=== PATIENT | male | born 1990 | race Caucasian/White ===

== ENCOUNTER → 2016-11-24 | Outpatient (CLI) | payer BC ==
[~2016-11-24] MED LIST: ASCO1CAP3 PO; ASPEC81 PO; CEFD300C2 PO; CIPR1TAB10 PO; CLC6 PO; DXY100 PO; INDO25CA14 PO
--- NOTE | 2016-11-24 15:10 | DIAGNOSTIC IMAGING REPORT ---
CT SCAN OF THE ABDOMEN AND PELVIS WITHOUT IV CONTRAST CLINICAL HISTORY: Upper abdominal pain. Hematuria. COMPARISON STUDY: No priors. TECHNIQUE: CT scan of the abdomen and pelvis is performed from the lung bases to the proximal femora. Images are reviewed in the axial, sagittal, and coronal planes. IV contrast was not administered for this examination as per the referring clinician. Automated dose control exposure was utilized. The examination is degraded by paucity of intraperitoneal fat. CT DOSE: 286.27 mGycm FINDINGS: Lung bases: The heart is normal in size and without pericardial effusion. The lung bases are clear. Liver: The unenhanced liver is normal in size, contour, and attenuation. There is no intrahepatic biliary ductal dilatation. Gallbladder: Contracted. Spleen: Normal in size and attenuation. Pancreas: The unenhanced pancreas is normal as visualized. Adrenal glands: Unremarkable. Kidneys: The unenhanced kidneys are normal in size and without hydronephrosis. There are no renal calculi identified. There is no evidence of contour deforming renal mass lesion. Abdominal vasculature: The abdominal aorta is normal in course and caliber. Bowel: The small bowel and colon are normal in course and caliber. There is moderate colonic fecal retention. The appendix is well-visualized and normal. Peritoneum: There is no intraperitoneal free air or abdominal ascites. Lymphadenopathy: None. Pelvic viscera: The bladder, prostate, and seminal vesicles are normal as imaged. Skeletal structures: No lytic or blastic lesions are seen. IMPRESSION: There are no acute infectious or inflammatory findings in the abdomen or pelvis. Electronically signed by: Oscar Howard M.D. 11/24/2016 3:09 PM Dictated Date/Time: 11/24/2016 3:04 PM
[2016-11-24 17:34] LABS: LYME DISEASE AB IGG NEG (NEG); LYME DISEASE AB IGM NEG (NEG)
== END | disposition home or self-care (01) ==
LOC: C.CTS 14:35
PROVIDERS: ATTEND Nurse Practitioner Family
DX: R31.9 Hematuria, unspecified (principal); R50.9 Fever, unspecified; M54.9 Dorsalgia, unspecified

== ENCOUNTER 2016-11-27 07:54 | Inpatient (IN) | payer BC ==
[~2016-11-27] VITALS: Ht 167.6 cm; Wt 58.1 kg
[2016-11-27] MEDS ORDERED: SODIUM CHLORIDE 0.9% 1000ML 1,000 ML IV STA ×2 (08:26→08:34)
[2016-11-27] MEDS ORDERED: GI COCKTAIL PO ONE (08:30)
[2016-11-27 08:46] LABS: HEMATOCRIT 38.8 % (42-52); MEAN CELL VOLUME 89.6 fL (80-100); MEAN CORPUSCULAR HEMOGLOBIN 32.1 pg (25-34); MEAN CORPUSCULAR HGB CONC 35.8 g/dl (32-36); MEAN PLATELET VOLUME 9.1 fL (7.4-10.4); PLATELET COUNT 121 K/uL (130-400); RED BLOOD COUNT 4.33 M/uL (4.7-6.1); WHITE BLOOD COUNT 5.83 K/uL (4.8-10.8)
[2016-11-27] MEDS ORDERED: LIDOCAINE HCL 2% VISC SOLN 20 ML UDC ONE (08:47)
[2016-11-27] MEDS ORDERED: ALUMINUM/MAGNESIUM SUSP 30 ML UDC ONE (08:47)
[2016-11-27] MEDS ORDERED: ASCO1CAP3 PO ×2 (08:48)
[2016-11-27] MEDS ORDERED: CIPR1TAB10 PO ×2 (08:48)
[2016-11-27 08:51] LABS: URINE APPEARANCE CLEAR (CLEAR); URINE BILIRUBIN NEG (NEG); URINE COLOR YELLOW; URINE EPITHELIAL CELL AUTO 0-5 /lpf (0-5); URINE NITRITE NEG (NEG); URINE SPECIFIC GRAVITY 1.012 (1.000-1.030); UROBILINOGEN NEG (NEG); ZZUR CULT IF INDIC CLEAN CATCH NO
[2016-11-27 08:54] LABS: MANUAL MICROSCOPIC REQUIRED? NO; REVIEW REQ? NO
[2016-11-27 09:03] LABS: BUN/CREATININE RATIO 22.1 (10-20); CREATININE 0.92 mg/dl (0.60-1.40); MAGNESIUM 2.4 mg/dl (1.8-2.4); POTASSIUM 3.9 mmol/L (3.5-5.1)
[2016-11-27 09:08] LABS: BASO % 1.2 %; BASO ABS # 0.07 K/uL (0-0.2); COMPLETE YES; EOS % 0.5 %; LYMPH % 48.5 %; LYMPH ABS # 2.83 K/uL (1.2-3.4); MONO % 14.9 %; NEUT % 34.9 %
[2016-11-27 09:21] LABS: CALCIUM 9.2 mg/dl (8.5-10.1)
--- NOTE | 2016-11-27 09:31 | DIAGNOSTIC IMAGING REPORT ---
CHEST ONE VIEW PORTABLE HISTORY: Atypical chest pain COMPARISON: None. FINDINGS: The lungs are clear. Cardiac silhouette is normal in size. No pleural effusions. No pneumothorax. IMPRESSION: No acute process. Electronically signed by: Stef Servin M.D. 11/27/2016 9:29 AM Dictated Date/Time: 11/27/2016 9:28 AM
--- NOTE | 2016-11-27 09:37 | EMERGENCY ROOM VISIT NOTE ---
History First contact with patient: 08:05 Chief Complaint: CARDIAC ASSESSMENT Stated Complaint: ARM PAIN/TINGLING/DIZZINESS,VERTIGO/CHEST PAIN Nursing Triage Summary: Pt c/o heart burn after taking cipro last night, c/o upper bilateral back pain and upper bilateral chest pain that began 2 hours ago. Pt associated pain and numbness feeling in bilateral arms Cipro for kidney infection. History of Present Illness The patient is a 26 year old male who presents to the Emergency Room with complaints of nausea and chest pain. The patient began having UTI symptoms on Sunday including burning of urination, fever, chills and increased urinary frequency and was seen by Arianna Foster on Sunday and diagnosed with pyelonephritis. He was started on a course of Ciprofloxacin. He reports that his symptoms were improving until last night he had some reflux after ingesting the Cipro at 11:30pm. The reflux was painful according to the patient and felt some discomfort along his chest as well as into his shoulder. Overnight the patient reports nausea described as feeling like he was rocking in a boat. He woke up this morning with chest discomfort he said feels like is going through his chest and also covering his back. He denies any fevers or chills over the last 24 hours. He also complains of numbness and tingling through his arms to his fingers. He denies any dysuria, flank pain, hematuria, abdominal pain, cloudiness of urine, or polyuria. Patient also denies any shortness of breath or palpitations. Review of Systems See HPI for pertinent positives and negatives. A total of ten systems were reviewed and were otherwise negative. Family History Father: Pulmonary Embolism at age 60 Social History Smoking Status: Never Smoker Current/Historical Medications Scheduled Ascorbic Acid (Vitamin C), 500 MG PO DAILY Ciprofloxacin Hcl (Cipro), 500 MG PO BID Allergies Coded Allergies: No Known Allergies (Unverified , 11/27/16) Physical Exam Vital Signs Date Time Temp Pulse Resp B/P Pulse Ox O2 Delivery O2 Flow Rate FiO2 11/27/16 10:33 92 21 99 11/27/16 10:28 90 19 98 11/27/16 10:23 89 27 98 11/27/16 10:18 87 26 98 11/27/16 10:13 86 21 98 11/27/16 09:43 85 20 100 11/27/16 09:38 126/71 11/27/16 09:29 97 22 11/27/16 09:24 97 29 11/27/16 09:19 80 24 11/27/16 09:14 82 18 11/27/16 09:09 85 31 11/27/16 09:04 75 16 11/27/16 08:59 98 15 11/27/16 08:55 107/70 11/27/16 08:55 71 16 107/70 100 Room Air 11/27/16 08:54 79 17 11/27/16 08:49 69 24 11/27/16 08:44 71 25 11/27/16 08:39 74 22 11/27/16 08:34 78 27 11/27/16 08:29 81 18 11/27/16 08:27 75 11/27/16 08:12 107/58 11/27/16 08:10 98 Room Air 11/27/16 08:02 36.5 97 18 108/71 98 Room Air Physical Exam GENERAL: Awake, alert, in moderate distress HENT: Normocephalic, atraumatic. Oropharynx unremarkable. Dry mucous membranes EYES: Normal conjunctiva. Sclera non-icteric. NECK: Supple. Trachea midline RESPIRATORY: Clear to auscultation. Good inspiratory effort CARDIAC: Regular rate, normal rhythm. Extremities warm and well perfused. Pulses equal. ABDOMEN: Soft, non-distended. No tenderness to palpation. No rebound or guarding. No masses. RECTAL: Deferred. MUSCULOSKELETAL: Chest examination reveals no tenderness. The back is symmetrical on inspection without obvious abnormality. There is no CVA tenderness to palpation. No joint edema. Pectus excavatum. LOWER EXTREMITIES: Calves are equal size bilaterally and non-tender. No edema. No discoloration. NEURO: Normal sensorium. No sensory or motor deficits noted. SKIN: No rash or jaundice noted. Medical Decision & Procedures Laboratory Results 11/27/16 08:30 Red Blood Count 4.33, Mean Corpuscular Volume 89.6, Mean Corpuscular Hemoglobin 32.1, Mean Corpuscular Hemoglobin Concent 35.8, Mean Platelet Volume 9.1, Neutrophils (%) (Auto) 34.9, Lymphocytes (%) (Auto) 48.5, Monocytes (%) (Auto) 14.9, Eosinophils (%) (Auto) 0.5, Basophils (%) (Auto) 1.2, Neutrophils # (Auto ) 2.03, Lymphocytes # (Auto) 2.83, Monocytes # (Auto) 0.87, Eosinophils # (Auto ) 0.03, Basophils # (Auto) 0.07 11/27/16 08:30 Test 11/27/16 08:13 11/27/16 08:30 Urine Color YELLOW Urine Appearance CLEAR (CLEAR) Urine pH 7.0 (4.5-7.5) Urine Specific [place] 1.012 (1.000-1.030) Urine Protein NEG (NEG) Urine Glucose (UA) NEG (NEG) Urine Ketones NEG (NEG) Urine Occult Blood 1+ (NEG) Urine Nitrite NEG (NEG) Urine Bilirubin NEG (NEG) Urine Urobilinogen NEG (NEG) Urine Leukocyte Esterase NEG (NEG) Urine WBC (Auto) 0 /hpf (0-5) Urine RBC (Auto) 5-10 /hpf (0-4) Urine Hyaline Casts (Auto) 0 /lpf (0-5) Urine Epithelial Cells (Auto) 0-5 /lpf (0-5) Urine Bacteria (Auto) NEG (NEG) White Blood Count 5.83 K/uL (4.8-10.8) Red Blood Count 4.33 M/uL (4.7-6.1) Hemoglobin 13.9 g/dL (14.0-18.0) Hematocrit 38.8 % (42-52) Mean Corpuscular Volume 89.6 fL (80-100) Mean Corpuscular Hemoglobin 32.1 pg (25-34) Mean Corpuscular Hemoglobin Concent 35.8 g/dl (32-36) Platelet Count 121 K/uL (130-400) Mean Platelet Volume 9.1 fL (7.4-10.4) Neutrophils (%) (Auto) 34.9 % Lymphocytes (%) (Auto) 48.5 % Monocytes (%) (Auto) 14.9 % Eosinophils (%) (Auto) 0.5 % Basophils (%) (Auto) 1.2 % Neutrophils # (Auto) 2.03 K/uL (1.4-6.5) Lymphocytes # (Auto) 2.83 K/uL (1.2-3.4) Monocytes # (Auto) 0.87 K/uL (0.11-0.59) Eosinophils # (Auto) 0.03 K/uL (0-0.5) Basophils # (Auto) 0.07 K/uL (0-0.2) RDW Standard Deviation 46.4 fL (36.4-46.3) RDW Coefficient of Variation 14.2 % (11.5-14.5) Immature Granulocyte % (Auto) 0.0 % Immature Granulocyte # (Auto) 0.00 K/uL (0.00-0.02) Erythrocyte Sedimentation Rate 11 mm/hr (0-14) D-Dimer 1700 ug/L FEU (0-500) Anion Gap 7.0 mmol/L (3-11) Est Creatinine Clear Calc Drug Dose 98.8 ml/min Estimated GFR () 133.5 Estimated GFR (Non- 115.2 BUN/Creatinine Ratio 22.1 (10-20) Calcium Level 9.2 mg/dl (8.5-10.1) Magnesium Level 2.4 mg/dl (1.8-2.4) Total Bilirubin 0.7 mg/dl (0.2-1) Direct Bilirubin 0.1 mg/dl (0-0.2) Aspartate Amino Transf (AST/SGOT) 32 U/L (15-37) Alanine Aminotransferase (ALT/SGPT) 38 U/L (12-78) Alkaline Phosphatase 44 U/L (45-117) Troponin I 0.698 ng/ml (0-0.045) C-Reactive Protein 1.91 mg/dl (0-0.29) Total Protein 7.1 gm/dl (6.4-8.2) Albumin 3.7 gm/dl (3.4-5.0) Lipase 192 U/L (73-393) Medications Administered Medications (Trade) Dose Ordered Sig/Angelica Route Start Time Stop Time Status Last Admin Dose Admin Sodium Chloride (Nss 1000ml) 1,000 ml @ 999 mls/hr Q1H1M STAT IV 11/27/16 08:26 11/27/16 09:26 DC 11/27/16 08:50 999 MLS/HR Miscellaneous Medication 24 ml 24 ml ONE ONCE PO 11/27/16 08:30 11/27/16 08:31 DC 11/27/16 08:30 24 ML Sodium Chloride (Nss 1000ml) 1,000 ml @ 999 mls/hr Q1H1M STAT IV 11/27/16 08:34 11/27/16 09:34 DC 11/27/16 08:52 999 MLS/HR Al Hydroxide/Mg Hydroxide (Maalox Susp) 30 ml STK-MED ONCE .ROUTE 11/27/16 08:47 11/27/16 08:48 DC 11/27/16 08:50 30 ML Lidocaine HCl (Viscous Lidocaine 2% Soln) 20 ml STK-MED ONCE .ROUTE 11/27/16 08:47 11/27/16 08:48 DC 11/27/16 08:50 20 ML Medical Decision Patient is a 26 year old male that presents with chills, nausea, and chest pain since last night - Differential diagnosis: GERD, Pyelonephritis, Anxiety, Cardiac Ischemia, Aortic Dissection, Pulmonary Embolism, Pneumonia, Pneumothorax, MSK, Infections , GI, Myocarditis/Pericarditis - EKG: Normal Sinus Rhythm, No ST changes, Normal Rate - Labs Ordered: CBC, BMP, Lipase, LFTs, Troponin, D-dimer - Imaging Ordered: Chest X-Ray - 1L IV NS - GI Cocktail - Troponin found to be elevated at 0.698, D-Dimer elevated at 1700 - Based on symptoms, concerning for possible pericarditis, myocarditis, or pulmonary embolism - Contacted Dr. Ruelas who agreed to see the patient - After discussing case with Dr. Ruelas ordered CTA for PE Impression Primary Impression: Chest pain Additional Impression: Elevated troponin Departure Information Dispostion Admitted as an inpatient Condition FAIR Referrals Arianna Gonzales, C.R.N.P. (PCP) Patient Instructions [facility] Problem Qualifiers Primary Impression: Chest pain Chest pain type: unspecified Qualified Codes: R07.9 - Chest pain, unspecified
[2016-11-27] MEDS ORDERED: OPTIRAY 320 IV PRN (09:45)
--- NOTE | 2016-11-27 10:17 | DIAGNOSTIC IMAGING REPORT ---
CHEST CTA for PULMONARY ARTERIES CT DOSE: 192.10 mGy.cm HISTORY: Atypical chest pain. TECHNIQUE: Multiaxial CT images of the chest were performed following the intravenous administration of contrast to evaluate the pulmonary arteries. Maximal intensity projection images were also obtained. COMPARISON STUDY: None. FINDINGS: There is a normal caliber thoracic aorta with no evidence for dissection. There is no evidence for pulmonary embolus. No pleural effusions. No pneumothorax. The liver and spleen are unremarkable. No mediastinal or hilar lymphadenopathy. The central airways are patent. The lungs are clear. The main pulmonary artery is dilated up to 3.4 cm. IMPRESSION: No evidence for pulmonary embolus. Dilated main pulmonary artery. This is concerning for pulmonary arterial hypertension. Follow-up nonemergent echocardiogram is recommended for further evaluation. Electronically signed by: Stef Servin M.D. 11/27/2016 10:16 AM Dictated Date/Time: 11/27/2016 10:07 AM
[2016-11-27 10:55] LABS: LYME DISEASE AB IGG NEG (NEG); LYME DISEASE AB IGM NEG (NEG)
[2016-11-27] MEDS ORDERED: ALUMINUM/MAGNESIUM/SIMETH (MAALOX MAX) 30 ML UDC PO PRN (11:00)
[2016-11-27] MEDS ORDERED: ONDANSETRON INJ 2 MG/ML 2 ML VIAL IV PRN (11:00)
[2016-11-27] MEDS ORDERED: ACETAMINOPHEN 325 MG TAB PO PRN (11:00)
[2016-11-27 11:20] VITALS: O2SAT 99; Ht 167.6 cm; Wt 58.1 kg
--- NOTE | 2016-11-27 11:45 | History and Physical ---
History & Physical Date & Time of Service: November 27, 2016 at 11:10 Chief Complaint: Arm Pain/Tingling/Dizziness,Vertigo/Chest Pain Primary Care Physician: Arianna Gonzales C.R.N.P. History of Present Illness Source: patient, partner Pt is a 26 yo male with no past medical hx who presents to the ER with complaints of nausea/chest tightness and upper back pain that started this AM. Pt reports having pain on urination and bilateral flank pain and fevers, joint pains last Sunday in which he states he went to see Arianna Foster after symptoms persisted for 2 days. He was given cipro at that time in which he states his symptoms initially improved until yesterday in which he states he had some reflux after taking his cipro. He states this morning, he woke up chest pressure and upper back pain as well. He felt cloudy, and dizzy and general malaise at which he decided to come to the ER. In addition pt does report prior to his intial sx last week, he did notice several tick bites on his abdomen and left leg. Currently he denies any fevers, chill, nausea, vomiting, diarrhea, flank pain, abdominal pain or urinary sx. Social History Smoking Status: Never Smoker Smokeless Tobacco Use: No Alcohol Use: none Drug Use: none Marital Status: in relationship Allergies Coded Allergies: No Known Allergies (Unverified , 11/27/16) Home Medications Scheduled Ascorbic Acid (Vitamin C), 500 MG PO DAILY Ciprofloxacin Hcl (Cipro), 500 MG PO BID Review of Systems Constitutional: + chills, + fatigue, + fever, + weakness, No sweats Eyes: No discharge, No eye pain, No redness, No worsening of vision ENT: No hearing loss, No nasal symptoms, No sore throat, No tinnitus, No trouble swallowing, No unusual epistaxis Respiratory: No cough, No dyspnea on exertion, No shortness of breath, No sputum, No wheezing Cardiovascular: + chest pain, No PND, No claudication, No edema, No orthopnea Abdomen: No constipation, No diarrhea, No nausea, No pain, No vomiting Musculoskeletal: + joint pain, + muscle pain, No calf pain, No swelling Genitourinary - Male: No dysuria, No hematuria, No urinary frequency, No urinary urgency Neurologic: No numbness/tingling, No paralysis, No vertigo, No weakness Psychiatric: No anhedonism, No anxiety, No depression symptoms, No insomnia Endocrine: No excessive thirst, No excessive urination, No fatigue Integumentary: No color change, No itch, No new/changing skin lesions, No rash Physical Exam Vital Signs Date Time Temp Pulse Resp B/P Pulse Ox O2 Delivery O2 Flow Rate FiO2 11/27/16 10:33 92 21 99 11/27/16 10:28 90 19 98 11/27/16 10:23 89 27 98 11/27/16 10:18 87 26 98 11/27/16 10:13 86 21 98 11/27/16 09:43 85 20 100 11/27/16 09:38 126/71 11/27/16 09:29 97 22 11/27/16 09:24 97 29 11/27/16 09:19 80 24 11/27/16 09:14 82 18 11/27/16 09:09 85 31 11/27/16 09:04 75 16 11/27/16 08:59 98 15 11/27/16 08:55 107/70 11/27/16 08:55 71 16 107/70 100 Room Air 11/27/16 08:54 79 17 11/27/16 08:49 69 24 11/27/16 08:44 71 25 11/27/16 08:39 74 22 11/27/16 08:34 78 27 11/27/16 08:29 81 18 11/27/16 08:27 75 11/27/16 08:12 107/58 11/27/16 08:10 98 Room Air 11/27/16 08:02 36.5 97 18 108/71 98 Room Air General Appearance: WD/WN, no apparent distress Head: normocephalic, atraumatic Eyes: normal inspection, PERRL, EOMI, sclerae normal ENT: normal ENT inspection, hearing grossly normal, TMs normal, pharynx normal Neck: supple, no adenopathy, thyroid normal, no JVD Respiratory/Chest: chest non-tender, lungs clear, normal breath sounds, no respiratory distress Cardiovascular: regular rate, rhythm, no edema, no gallop, no JVD Abdomen/GI: normal bowel sounds, non tender, soft, no organomegaly Back: normal inspection, no CVA tenderness, no muscle spasm, normal range of motion Neurologic/Psych: no motor/sensory deficits, alert, normal mood/affect, normal reflexes Diagnostics Laboratory Results Results Past 24 Hours Test 11/27/16 08:13 11/27/16 08:30 11/27/16 11:01 Range/Units Urine Color YELLOW Urine Appearance CLEAR CLEAR Urine pH 7.0 4.5-7.5 Urine Specific [place] 1.012 1.000-1.030 Urine Protein NEG NEG Urine Glucose (UA) NEG NEG Urine Ketones NEG NEG Urine Occult Blood 1+ NEG Urine Nitrite NEG NEG Urine Bilirubin NEG NEG Urine Urobilinogen NEG NEG Urine Leukocyte Esterase NEG NEG Urine WBC (Auto) 0 0-5 /hpf Urine RBC (Auto) 5-10 0-4 /hpf Urine Hyaline Casts (Auto) 0 0-5 /lpf Urine Epithelial Cells (Auto) 0-5 0-5 /lpf Urine Bacteria (Auto) NEG NEG White Blood Count 5.83 4.8-10.8 K/uL Red Blood Count 4.33 4.7-6.1 M/uL Hemoglobin 13.9 14.0-18.0 g/dL Hematocrit 38.8 42-52 % Mean Corpuscular Volume 89.6 80-100 fL Mean Corpuscular Hemoglobin 32.1 25-34 pg Mean Corpuscular Hemoglobin Concent 35.8 32-36 g/dl Platelet Count 121 130-400 K/uL Mean Platelet Volume 9.1 7.4-10.4 fL Neutrophils (%) (Auto) 34.9 % Lymphocytes (%) (Auto) 48.5 % Monocytes (%) (Auto) 14.9 % Eosinophils (%) (Auto) 0.5 % Basophils (%) (Auto) 1.2 % Neutrophils # (Auto) 2.03 1.4-6.5 K/uL Lymphocytes # (Auto) 2.83 1.2-3.4 K/uL Monocytes # (Auto) 0.87 0.11-0.59 K/uL Eosinophils # (Auto) 0.03 0-0.5 K/uL Basophils # (Auto) 0.07 0-0.2 K/uL RDW Standard Deviation 46.4 36.4-46.3 fL RDW Coefficient of Variation 14.2 11.5-14.5 % Immature Granulocyte % (Auto) 0.0 % Immature Granulocyte # (Auto) 0.00 0.00-0.02 K/uL Erythrocyte Sedimentation Rate 11 0-14 mm/hr D-Dimer 1700 0-500 ug/L FEU Sodium Level 138 136-145 mmol/L Potassium Level 3.9 3.5-5.1 mmol/L Chloride Level 103 98-107 mmol/L Carbon Dioxide Level 28 21-32 mmol/L Anion Gap 7.0 3-11 mmol/L Blood Urea Nitrogen 20 7-18 mg/dl Creatinine 0.92 0.60-1.40 mg/dl Est Creatinine Clear Calc Drug Dose 98.8 ml/min Estimated GFR () 133.5 Estimated GFR (Non- 115.2 BUN/Creatinine Ratio 22.1 10-20 Random Glucose 96 70-99 mg/dl Calcium Level 9.2 8.5-10.1 mg/dl Magnesium Level 2.4 1.8-2.4 mg/dl Total Bilirubin 0.7 0.2-1 mg/dl Direct Bilirubin 0.1 0-0.2 mg/dl Aspartate Amino Transf (AST/SGOT) 32 15-37 U/L Alanine Aminotransferase (ALT/SGPT) 38 12-78 U/L Alkaline Phosphatase 44 45-117 U/L Troponin I 0.698 0-0.045 ng/ml C-Reactive Protein 1.91 0-0.29 mg/dl Total Protein 7.1 6.4-8.2 gm/dl Albumin 3.7 3.4-5.0 gm/dl Lipase 192 73-393 U/L Lyme Disease IgG Antibody NEG NEG Lyme Disease IgM Antibody NEG NEG Microbiology Results 11/27/16 Blood Culture, South Batch Pending 11/27/16 Blood Culture, [place] Batch Pending Impression Assessment and Plan Pt is a 26 yo male with no med hx who initially presented to PCP last sunday with urinary sx, flank pain and placed on cipro and improved until this AM pt reported dizziness, chest pressure with elev trop Chest pressure with elev trop/NSTEMI - Pt reports improvement of chest tightness in ER. Pt does report father had PE and is on coumadin. Will cont to trend trops. ?if trops due to recents infection. ? pericarditis from recent infection as well. Will obtain EKG and ECHO. Will start on rocephin and doxycycline in addition to IVF. Will obtain outpatient records regarding urine cx, and lyme titers. Will also order anaplasmosis screening as well. Elev Bun/Cr likely secondary to dehydration and prerenal causes, will cont IVF and trend BMP Thrombocytopenia likely reactive to infection, if worsening may need to DC lovenox DVT ppx with lovenox Pt is FULL CODE VTE Prophylaxis VTE Risk Assessment Done? Y/N: Yes Risk Level: Moderate
[2016-11-27 12:30] VITALS: BP 106/69; PULSE 77; TEMP 36.7; O2SAT 100
[2016-11-27 12:40] LABS: INR 1.1 (0.9-1.1); PROTHROMBIN TIME (PATIENT) 11.7 SECONDS (9.0-12.0)
--- NOTE | 2016-11-27 13:20 | ECHOCARDIOGRAM REPORT ---
*NOTICE TO RECEIVING REPUBLICAN AGENCY This information is strictly Confidential and protected under [place] law. [place] law prohibits you from making any further disclosure of this information unless further disclosure is expressly permitted by the written consent of the person to whom it pertains or is authorized by law. A general authorization for the release of medical or other information is not sufficient for this purpose. Hospital accepts no responsibility if the information is made available to any other person, INCLUDING THE PATIENT. Interpretation Summary * Name: JACKELYN ANDUJAR Study Date: 11/27/2016 12:17 PM BP: 106/69 mmHg * Patient Location: .2T\S\S238\S\2 HR: 75 * : 1990 (M/d/yyyy) Gender: Male Height: 66 in * Age: 26 yrs Ethnicity: [place] Weight: 125 lb * Ordering Physician: Audi Ruelas * Referring Physician: Self, Referred * Performed By: Gabriella Gonzales RCS * * Reason For Study: CHEST PAIN / ELEVATED TROPONIN * BSA: 1.6 m2 * -- Conclusions -- * 1. Normal left ventricular size and systolic function. EF 55-60%. No definite regional wall motion abnormalities. No left ventricular hypertrophy. No significant diastolic dysfunction. * 2. No significant valvular abnormalities. * 3. Normal estimated right ventricular systolic pressure. * 4. No prior study available for comparison. Procedure Details * A complete two-dimensional transthoracic echocardiogram was performed (2D, M-mode, Doppler and color flow Doppler). Left Ventricle * Normal left ventricular size and systolic function. EF 55-60%. No definite regional wall motion abnormalities. No left ventricular hypertrophy. No significant diastolic dysfunction. Right Ventricle * The right ventricle is normal in size and function. * The right ventricular systolic function is normal as assessed by tricuspid annular plane systolic excursion (TAPSE) (normal >1.5 cm). Atria * The left atrial size is normal. * Right atrial size is normal. * There is no evidence of atrial septal defect, but resolution does not allow assessment for a patent foramen ovale. Mitral Valve * The mitral valve leaflets appear normal. There is no evidence of stenosis, fluttering, or prolapse. * There is trace mitral regurgitation. Tricuspid Valve * The tricuspid valve is not well visualized, but is grossly normal. * There is no tricuspid stenosis. * There is trace tricuspid regurgitation. Aortic Valve * The aortic valve is normal in structure and function. * The aortic valve is trileaflet. * No hemodynamically significant valvular aortic stenosis. * No aortic regurgitation is present. Pulmonic Valve * The pulmonary valve is inadequately visualized, but the Doppler data is adequate for interpretation. * There is no pulmonic valvular stenosis. * There is no significant pulmonary regurgitation. Great Vessels * The aortic root is normal size. * Normal pulmonary venous flow pattern. Pericardium/Pleural * There is no pericardial effusion. Great Vessels * Normal inferior vena cava size and collapsability with sniff indicates a normal right atrial pressure of 3 mmHg MMode 2D Measurements and Calculations IVSd 0.98 cm IVSs 1.4 cm LVIDd 5.0 cm LVIDs 3.3 cm LVPWd 0.97 cm LVPWs 1.4 cm IVS/LVPW 1.0 FS 32.6 % EDV(Teich) 115.9 ml ESV(Teich) 45.4 ml EF(Teich) 60.8 % EDV(cubed) 121.8 ml ESV(cubed) 37.2 ml EF(cubed) 69.4 % % IVS thick 40.0 % % LVPW thick 39.1 % LV mass(C)d 174.1 grams LV mass(C)dI 106.3 grams/m\S\2 LV mass(C)s 155.5 grams LV mass(C)sI 94.9 grams/m\S\2 SV(Teich) 70.5 ml SI(Teich) 43.0 ml/m\S\2 SV(cubed) 84.6 ml SI(cubed) 51.6 ml/m\S\2 Ao root diam 2.8 cm Ao root area 6.2 cm\S\2 LA dimension 2.9 cm LA/Ao 1.0 LVOT diam 1.9 cm LVOT area 3.0 cm\S\2 LVAd ap4 36.8 cm\S\2 LVLd ap4 9.1 cm EDV(MOD-sp4) 127.3 ml EDV(sp4-el) 126.4 ml LVAs ap4 20.8 cm\S\2 LVLs ap4 7.2 cm ESV(MOD-sp4) 51.7 ml ESV(sp4-el) 50.8 ml EF(MOD-sp4) 59.4 % EF(sp4-el) 59.8 % SV(MOD-sp4) 75.6 ml SI(MOD-sp4) 46.1 ml/m\S\2 SV(sp4-el) 75.5 ml SI(sp4-el) 46.1 ml/m\S\2 Doppler Measurements and Calculations MV E max asher 73.9 cm/sec MV A max asher 36.7 cm/sec MV E/A 2.0 MV P1/2t max asher 95.1 cm/sec MV P1/2t 69.9 msec MVA(P1/2t) 3.1 cm\S\2 MV dec slope 398.8 cm/sec\S\2 MV dec time 0.24 sec Ao V2 max 101.1 cm/sec Ao max PG 4.1 mmHg Ao max PG (full) 1.4 mmHg RAIMUNDO(V,A) 2.4 cm\S\2 RAIMUNDO(V,D) 2.4 cm\S\2 LV V1 max PG 2.7 mmHg LV V1 max 81.4 cm/sec TV E max asher 73.9 cm/sec PA V2 max 85.9 cm/sec PA max PG 3.0 mmHg TR max asher 194.2 cm/sec RVSP(TR) 18.1 mmHg RAP systole 3.0 mmHg
--- NOTE | 2016-11-27 13:25 | EMERGENCY ROOM VISIT NOTE ---
ED Visit Note First contact with patient: 08:05 Resident Physician Supervision Note: Dr. Rajendra Trevino was resident physician during care of patient. I separately evaluated patient and did history and exam. I discussed the case with the resident and generally agree with the findings and plan. 26 yr old male with substernal chest pain this morning which he attributed to taking cipro last night. Being treated for UTI/pyelonephritis with normal CT abdo/pelv 2 days ago. Denies shortness of breath. Admits feeling weak/tired. Not septic appearing nor is there evidence of meningitis. Moderately ill appearing. EKG without acute stemi though there are some up going ST segments diffusely concerning for pericarditis. Trop is elevated. He is not a STEMI. I do not feel that this patient has NSTEMI and I feel this is unlikely ACS. However, he will clearly need to come in for further evaluation/treatment. Dimer done given family history which is elevated. May just be pericarditis/ myocarditis related, however with chest pain, elevated dimer and symptoms will go ahead with CT PE study which was fortunately negative. Will hold off on any heparinization in this patient. Diagnosis: Substernal Chest Pain Elevated Troponin Documented By: Francisco Butler MD
[2016-11-27] MEDS: SODIUM CHLORIDE 0.9% 1000ML 1,000 ML IV SCH ×2 (13:42→21:45)
[2016-11-27] MEDS: DOXYCYCLINE IV 100 MG in DEXTROSE 5% 100ML 100 ML IV SCH ×2 (13:43→23:58)
[2016-11-27 15:27] VITALS: BP 100/63; PULSE 90; TEMP 36.8; O2SAT 99
[2016-11-27] MEDS ORDERED: LORAZEPAM 0.5 MG TAB PO STA (16:55)
[2016-11-27] MEDS ORDERED: NURSING VERBAL MED ORDER ONE (17:00)
[2016-11-27] MEDS: CEFTRIAXONE SOD INJ 2,000 MG in DEXTROSE 5% 50ML 50 ML IV SCH (17:19)
[2016-11-27 19:14] VITALS: BP 101/63; PULSE 74; TEMP 36.6; O2SAT 99
[2016-11-27] MEDS: ENOXAPARIN 40 MG/0.4 ML SYR SQ SCH (21:00)
[2016-11-27] MEDS ORDERED: ASPIRIN 81 MG ECTAB PO ONE (23:35)
[2016-11-27] MEDS ORDERED: COLCHICINE 0.6 MG TAB PO ONE (23:35)
[2016-11-28] VITALS (7 sets, daily range): BP systolic 100–115; BP diastolic 64–71; PULSE 60–82; TEMP 36.6–37; O2SAT 97–99
--- NOTE | 2016-11-28 00:38 | Progress Note ---
Progress Note Date of Service November 28, 2016. Progress Note elevated troponin of 7. patient was started on ASA 81 mg bid and colchicine 0.6mg bid for pericarditis treatment. EKG reordered and consult [facility].
[2016-11-28 07:28] LABS: HEMATOCRIT 39.6 % (42-52); MEAN CELL VOLUME 91.2 fL (80-100); MEAN CORPUSCULAR HEMOGLOBIN 31.6 pg (25-34); MEAN CORPUSCULAR HGB CONC 34.6 g/dl (32-36); MEAN PLATELET VOLUME 8.7 fL (7.4-10.4); PLATELET COUNT 148 K/uL (130-400); RED BLOOD COUNT 4.34 M/uL (4.7-6.1); WHITE BLOOD COUNT 6.09 K/uL (4.8-10.8)
[2016-11-28 08:18] LABS: BUN/CREATININE RATIO 12.8 (10-20); CALCIUM 8.8 mg/dl (8.5-10.1); CREATININE 0.87 mg/dl (0.60-1.40); POTASSIUM 3.9 mmol/L (3.5-5.1)
[2016-11-28] MEDS: ASPIRIN 81 MG ECTAB PO SCH ×2 (08:25→20:32)
[2016-11-28] MEDS: COLCHICINE 0.6 MG TAB PO SCH ×2 (08:25→20:32)
[2016-11-28] MEDS ORDERED: LORAZEPAM 2 MG/ML 1 ML VIAL IV PRN (08:45)
[2016-11-28] MEDS ORDERED: LORAZEPAM 0.5 MG TAB PO PRN ×2 (08:51→09:15)
[2016-11-28] MEDS ORDERED: INDOMETHACIN 25 MG CAP PO ONE (08:55)
[2016-11-28 09:14] LABS: COMPLETE YES; LYMPH ABS # 2.81 K/uL (1.2-3.4); LYMPHOCYTE % 46.1 %; NEUTROPHILS % 17.4 %; VARIANT LYM ABS # 1.96 K/uL; VARIANT LYMPHOCYTE % 32.2 %
--- NOTE | 2016-11-28 10:09 | CARDIOLOGY CONSULTATION REPORT ---
DATE OF CONSULTATION: 11/28/2016 DATE OF CONSULTATION: 11/28/2016. REASON FOR CONSULTATION: 1. Chest pain. 2. Elevated troponin I level. HISTORY OF PRESENT ILLNESS: Porter is a very pleasant 26-year-old white male with no prior cardiac history, and no chronic medical conditions. He has been in his usual state of health until last Sunday when he developed mid back pain, nausea, fever, and malaise. He had also complained of some urinary symptoms. He was started empirically on Cipro for possible ascending UTI, and he had taken about 5 doses before he presented to the Emergency Room. On the morning of admission the patient had awakened, and noted some upper chest pressure which radiated to his upper back, but did not have any nausea, vomiting, diaphoresis, or dyspnea. Because of the chest discomfort, the patient came into the Emergency Room for further evaluation. The patient had had several tick bites leading up to this, but thus far his Lyme titers are negative. The patient offers no other complaints. He is a very physically active person -- generally riding bike, fishing, hiking, and doing a lot of aerobic activities. He has never experienced any limiting cardiopulmonary symptoms at any time with those activities. MEDICATIONS: 1. Aspirin 81 mg b.i.d. 2. Colchicine 0.6 mg b.i.d. 3. Lorazepam 0.5 mg p.o. q. 6 hour p.r.n. for anxiety. 4. Lovenox 40 mg subQ injection every day at bedtime. 5. Ceftriaxone 2 grams IV daily. 6. Doxycycline 100 mg IV q. 12 hours. 7. Normal saline at 100 mL per hour. 8. Tylenol p.r.n. 9. Maalox Max p.r.n. 10. Zofran p.r.n. ALLERGIES: No known drug allergies. PAST MEDICAL HISTORY: 1. No prior hospitalizations. 2. No prior cardiac history. 3. Nasolacrimal duct surgery. 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 He has his masters degree from [employer]. He does not use tobacco or tobacco products. He is originally from [place], [place]. Exercises on a daily basis. FAMILY HISTORY: Significant for a pulmonary embolism in his father at the age of 60. PHYSICAL EXAMINATION: VITAL SIGNS: Temperature is 36.7 degrees Celsius, pulse is 60 and regular. Respiratory rate is 17 and unlabored. Blood pressure is 106/69. SpO2 is 97% on room air. GENERAL: The patient in no acute distress. HEAD, EYES, EARS, NOSE, AND THROAT: Head is atraumatic, normocephalic. EOMs intact. Sclerae are anicteric. Face is symmetric. No perioral cyanosis. NECK: Is without thyromegaly, adenopathy, or JVD. Jugular venous pressure is at the level of the clavicle sitting upright. Kussmaul sign is absent. CHEST AND LUNGS: Clear to auscultation throughout all lung lewis. No wheezes, rales, or rhonchi. CARDIOVASCULAR: S1 and S2 are regular without murmur, gallop, or rub. PMI is nonpalpable. No lifts, heaves, or thrills. No abdominal aortic or renal bruits. ABDOMINAL EXAMINATION: Bowel sounds are present. No masses, organomegaly or tenderness. EXTREMITIES: Are without clubbing, cyanosis, or edema. Intact radial and posterior tibial pulses bilaterally. NEUROLOGIC EXAMINATION: The patient is awake, alert and oriented. Pleasant and cooperative. Answers questions appropriately. Speech is clear. Normal movement in bilateral upper and lower extremities. Gait pattern is not assessed. LABORATORIES: White blood cell count is 6.09, hemoglobin is 13.7 g/dL, hematocrit 39.6%, platelet count is 148,000. Sedimentation rate is 11 mm per hour. D-Dimer elevated at [address] scan of the chest for pulmonary embolism is negative. Sodium is 143 mmol/L, potassium 3.9 mmol/L, BUN is 11 mg/dL, creatinine is 0.87 mg/dL, random glucose 93 mg/dL. Serum magnesium level is normal at 2.4 mg/dL. Troponin I levels are 5.510, 7.680, 1.310, and 0.698 ng/mL. CK and CK-MB levels were not drawn. C. reactive protein is elevated at 1.91 mg/dL. Urine shows 1+ occult blood, no white blood cells. Serology - Lyme disease IgG and IgM are negative. CMV, coxsackievirus, EBV and parvovirus studies are pending. CT Angiogram of the chest and lungs shows no evidence of pulmonary embolism. Chest x-ray is unremarkable. EKG on admission shows normal sinus rhythm at the rate of 66 beats per minute with ST elevation, possible early repolarization. Telemetry monitoring reveals predominantly normal sinus rhythm, occasional junctional rhythm overnight. Echocardiogram shows normal LV size and systolic function. LVEF 55% to 60% without regional wall motion abnormalities. No evidence of LVH. No significant diastolic dysfunction. No significant valvular abnormalities. Normal estimated right ventricular systolic pressure. No pericardial effusion. ASSESSMENT: 1. Chest pain which radiated to the back with associated elevated troponin I level, recent viral syndrome, likely an Acute Myopericarditis. 2. Elevated troponin I, secondary to problem #1. 3. Otherwise healthy 26-year-old white male. PLAN: 1. Discussed with Dr. Fernando who also will meet with the patient. 2. Continue Colchicine 0.6 mg b.i.d. for a minimum of 3 months. 3. Begin Indocin 25 mg p.o. t.i.d. - continue for 2 to 4 weeks if patient tolerates. 4. Stay well hydrated. 5. Some consideration given to beta blockers, but patient has periods of junctional bradycardia overnight. No clear-cut indication for beta blockers at this time. 6. Consider a repeat Echocardiogram in 6-8 weeks to re-evaluate LV systolic function. 7. The patient may be released from the hospital when his chest pain becomes minimal. 8. Would recommend followup with myself and Dr. Fernando within the next 2-3 weeks. We will then follow up with him after his echocardiogram. BEATRICE
--- NOTE | 2016-11-28 10:16 | Hospitalist Progress Note ---
Hospitalist Progress Note Date of Service November 28, 2016. (Dyan Frost ., PA-C) Subjective Pt evaluation today including: conversation w/ patient, physical exam, chart review, lab review, review of studies, review of inpatient medication list Voiding: no voiding problems, no incontinence Patient states he is feeling OK. +chest pressure; was given Ativan yesterday which helped improve his symptoms, requesting Ativan. He admits to a tick bite about 2 weeks ago, but states they were on him for <12 hours. He is eating and drinking OK. Patient denies any fever, chills, sweats, lightheadedness, dizziness, vision changes, palpitations, edema, SOB, wheezing, cough, abdominal pain, nausea, vomiting, diarrhea, urinary symptoms, melena, numbness/tingling, weakness, muscle/joint pain, anxiety/depression, active bleeding, or new skin discoloration/changes. (Dyan Frost ., PA-C) Medications Current Inpatient Medications Medications (Trade) Dose Ordered Sig/Angelica Route Start Time Stop Time Status Last Admin Dose Admin Ioversol (Optiray 320) 125 ml UD PRN IV 11/27/16 09:45 12/01/16 09:44 Enoxaparin Sodium (Lovenox Inj) 40 mg HS SQ 11/27/16 21:00 12/27/16 20:59 Acetaminophen (Tylenol Tab) 650 mg Q4H PRN PO 11/27/16 11:00 12/27/16 10:59 Al Hydrox/Mg Hydrox/Simethicone (Maalox Max Susp) 15 ml Q4H PRN PO 11/27/16 11:00 12/27/16 10:59 Ondansetron HCl 4 mg 4 mg Q6H PRN IV 11/27/16 11:00 12/27/16 10:59 Doxycycline Hyclate 100 mg/ Dextrose 110 ml @ 50 mls/hr Q12@0000,1200 IV 11/27/16 12:30 12/07/16 11:59 11/27/16 23:58 50 MLS/HR Ceftriaxone Sodium 2000 mg/ Dextrose 70 ml @ 100 mls/hr DAILY@1400 IV 11/27/16 14:00 12/07/16 13:59 11/27/16 17:19 100 MLS/HR Sodium Chloride (Nss 1000ml) 1,000 ml @ 100 mls/hr Q10H IV 11/27/16 11:45 12/27/16 11:44 11/27/16 21:45 100 MLS/HR Aspirin (Ecotrin Tab) 81 mg BID PO 11/28/16 09:00 12/28/16 08:59 11/28/16 08:25 81 MG Colchicine (Colchicine Tab) 0.6 mg BID PO 11/28/16 09:00 12/28/16 08:59 11/28/16 08:25 0.6 MG Indomethacin (Indocin Cap) 25 mg TID PO 11/28/16 14:00 12/28/16 13:59 Lorazepam (Ativan Tab) 0.5 mg Q6H PRN PO 11/28/16 09:15 12/28/16 09:14 (Dyan Frost, CHANCE-C) Objective Vital Signs Date Time Temp Pulse Resp B/P Pulse Ox O2 Delivery O2 Flow Rate FiO2 11/28/16 08:00 Room Air 11/28/16 08:00 36.6 76 16 115/71 99 11/28/16 04:12 36.7 60 16 106/69 97 Room Air 11/28/16 04:00 Room Air 11/28/16 00:06 36.9 78 17 100/64 99 Room Air 11/28/16 00:00 Room Air 11/27/16 20:00 Room Air 11/27/16 19:14 36.6 74 18 101/63 99 Room Air 11/27/16 16:00 Room Air 11/27/16 15:27 36.8 90 18 100/63 99 Room Air 11/27/16 12:30 36.7 77 18 106/69 100 Room Air 11/27/16 11:20 99 Room Air 11/27/16 11:13 85 11/27/16 10:33 92 21 99 11/27/16 10:28 90 19 98 11/27/16 10:23 89 27 98 11/27/16 10:18 87 26 98 11/27/16 10:13 86 21 98 (Dyan Frost, PA-C) Physical Exam General Appearance: no apparent distress Eyes: normal inspection, PERRL ENT: hearing grossly normal Neck: supple Respiratory/Chest: lungs clear, no respiratory distress, no accessory muscle use Cardiovascular: regular rate, rhythm Abdomen: normal bowel sounds, non tender, soft Extremities: no pedal edema, no calf tenderness Neurologic/Psychiatric: alert, normal mood/affect, oriented x 3 Skin: normal color, warm/dry, no rash (Dyan Frost PA-C) Laboratory Results Last 24 Hours Test 11/27/16 11:00 11/27/16 14:22 11/27/16 22:10 11/28/16 07:00 Prothrombin Time 11.7 SECONDS Prothromb Time International Ratio 1.1 Activated Partial Thromboplast Time 26.4 SECONDS Partial Thromboplastin Ratio 1.0 Troponin I 1.310 ng/ml 7.680 ng/ml 5.510 ng/ml White Blood Count 6.09 K/uL Red Blood Count 4.34 M/uL Hemoglobin 13.7 g/dL Hematocrit 39.6 % Mean Corpuscular Volume 91.2 fL Mean Corpuscular Hemoglobin 31.6 pg Mean Corpuscular Hemoglobin Concent 34.6 g/dl Platelet Count 148 K/uL Mean Platelet Volume 8.7 fL RDW Standard Deviation 47.9 fL RDW Coefficient of Variation 14.5 % Neutrophils % (Manual) 17.4 % Lymphocytes % (Manual) 46.1 % Variant Lymphocytes % (manual) 32.2 % Monocytes % (Manual) 4.3 % Neutrophils # (Manual) 1.06 K/uL Total Absolute Neutrophils 1.06 K/uL Lymphocytes # (Manual) 2.81 K/uL Absolute Variant Lymphocytes 1.96 K/uL Total Absolute Lymphocytes 4.77 K/uL Monocytes # (Manual) 0.26 K/uL Red Blood Cell Morphology Unremarkable Sodium Level 143 mmol/L Potassium Level 3.9 mmol/L Chloride Level 108 mmol/L Carbon Dioxide Level 29 mmol/L Anion Gap 6.0 mmol/L Blood Urea Nitrogen 11 mg/dl Creatinine 0.87 mg/dl Est Creatinine Clear Calc Drug Dose 104.5 ml/min Estimated GFR () 139.0 Estimated GFR (Non- 120.0 BUN/Creatinine Ratio 12.8 Random Glucose 93 mg/dl Calcium Level 8.8 mg/dl (Dyan Frost PA-C) Assessment and Plan Pt is a 26 y/o male with no med hx who initially presented to PCP last Sunday with urinary sx, flank pain and placed on Cipro and improved until this AM, on 11/27, pt reported dizziness, chest pressure with elev trop Chest pressure with elevated trop/NSTEMI: - Admit to tele for cardiac monitoring- sinus rhythm 60-80s w/ occasional junctional beats - Trend cardiac enzymes- peak trop 7.680 - Elevated d-dimer- CTA negative for PE - ?pericarditis- ASA 81 mg BID, Colchicine 0.6 BID, and Indomethacin 25 mg TID - CXR- no acute process - ECHO- * 1. Normal left ventricular size and systolic function. EF 55-60%. No definite regional wall motion abnormalities. No left ventricular hypertrophy. No significant diastolic dysfunction. * 2. No significant valvular abnormalities. * 3. Normal estimated right ventricular systolic pressure. * 4. No prior study available for comparison. - IV Rocephin and Doxycycline pending serologies and BCx - IVF @ 100 ml/hr - UCx- NGTD - Cardiology consulted, appreciate recommendations -- Echocardiogram in 6-8 weeks to re-evaluate LV systolic function. -- Recommend followup with myself and Dr. Fernando within the next 2-3 weeks. -- Continue Colchicine for at least 3 months Elevated BUN/Cr, likely secondary to dehydration- RESOLVED: - Treated w/ IVF - Follow PRP Thrombocytopenia, likely reactive to infection- RESOLVED: Follow CBC DVT Prophylaxis: Lovenox Code Status: LEVEL I, FULL Dispo: Discharge to home once medically stable- no discharge needs anticipated (Dyan Frost, PA-C) i personally examined pt and verified all low points w Neil Frost PAC feeling much better, less aches, less chest pain, clearing hematuria ros otherwise negative except for as above vitals noted nad breathing unlabored no rashes no pallor or icterus a/p hematuria, guera/myocarditis, ?reactive arthritis -appearing reactive to viral vs tick borne vs urinary /urethral pathogens ---on rocephin and doxy - which if tick borne or urinary/urethral pathogens would cover empirically; improving --> continue for now ---viral would be most likely for guera/myocarditis, could cause aches, but urinary sx would be unlikely and this was part of his cardinal symptom complex; urethral pathogens easily would explain urinary sx, reactive arthritis, but unlikely to explain guera/myocarditis. tick borne - lyme negative, and with symptoms being so severe, it would be unlikely to be false negative; anaplasmosis seems unlikely but on literature review, there is a single case in which myocarditis was attributed to anaplasmosis ---d/w pt likely given diagnostic condundrum and limitations of diagnostic tests , will have to continue empiric treatment, and likely finish empiric course. improving otherwise as above (Fredo Conde D.O.)
[2016-11-28] MEDS: SODIUM CHLORIDE 0.9% 1000ML 1,000 ML IV SCH ×2 (11:35→20:31)
[2016-11-28] MEDS: DOXYCYCLINE IV 100 MG in DEXTROSE 5% 100ML 100 ML IV SCH ×2 (11:40→23:56)
[2016-11-28] MEDS: CEFTRIAXONE SOD INJ 2,000 MG in DEXTROSE 5% 50ML 50 ML IV SCH (14:06)
[2016-11-28] MEDS: INDOMETHACIN 25 MG CAP PO SCH ×2 (14:06→20:32)
[2016-11-28] MEDS: ENOXAPARIN 40 MG/0.4 ML SYR SQ SCH (20:32)
[2016-11-29] VITALS: BP 99/64; PULSE 67; TEMP 36.6; O2SAT 100
[2016-11-29 03:55] VITALS: BP 93/58; PULSE 62; TEMP 36.6; O2SAT 98
[2016-11-29 04:00] VITALS: O2SAT 98
[2016-11-29 07:27] LABS: HEMATOCRIT 32.8 % (42-52); MEAN CELL VOLUME 90.9 fL (80-100); MEAN CORPUSCULAR HEMOGLOBIN 31.9 pg (25-34); MEAN CORPUSCULAR HGB CONC 35.1 g/dl (32-36); MEAN PLATELET VOLUME 8.7 fL (7.4-10.4); PLATELET COUNT 157 K/uL (130-400); RED BLOOD COUNT 3.61 M/uL (4.7-6.1); WHITE BLOOD COUNT 6.91 K/uL (4.8-10.8)
[2016-11-29 07:41] VITALS: BP 102/64; PULSE 81; TEMP 36.8; O2SAT 99
[2016-11-29] MEDS: SODIUM CHLORIDE 0.9% 1000ML 1,000 ML IV SCH (07:44)
[2016-11-29] MEDS: ASPIRIN 81 MG ECTAB PO SCH (07:45)
[2016-11-29] MEDS: INDOMETHACIN 25 MG CAP PO SCH (07:45)
[2016-11-29 07:52] LABS: CALCIUM 8.4 mg/dl (8.5-10.1)
[2016-11-29 07:53] LABS: BUN/CREATININE RATIO 15.6 (10-20); CREATININE 0.82 mg/dl (0.60-1.40); POTASSIUM 4.3 mmol/L (3.5-5.1)
[2016-11-29] MEDS: COLCHICINE 0.6 MG TAB PO SCH (08:14)
[2016-11-29 08:46] LABS: BASO ABS # 0.06 K/uL (0-0.2); BASOPHIL % 0.9 % (0-2); COMPLETE YES; EOSINOPHIL % 1.8 %; LYMPH ABS # 3.39 K/uL (1.2-3.4); NEUTROPHILS % 21.1 %; VARIANT LYM ABS # 1.58 K/uL; VARIANT LYMPHOCYTE % 22.8 %
[2016-11-29] MEDS ORDERED: DXY100 PO ×2 (09:47)
[2016-11-29] MEDS ORDERED: CEFD300C2 PO ×2 (09:47)
[2016-11-29] MEDS ORDERED: CLC6 PO ×2 (09:47)
[2016-11-29] MEDS ORDERED: INDO25CA14 PO ×2 (09:47)
[2016-11-29] MEDS ORDERED: ASPEC81 PO ×2 (09:47)
--- NOTE | 2016-11-29 09:54 | Discharge Instructions ---
Discharge Instructions Date of Service November 29, 2016. Admission Reason for Admission: Chest Pain; Elevated Troponin Discharge Discharge Diagnosis / Problem: Pericarditis Discharge Goals Goal(s): Decrease discomfort, Improve function, Learn about illness, Diagnostic testing, Therapeutic intervention, Prevent Disease Progression Activity Recommendations Activity Limitations: per Instructions/Follow-up section Exercise/Sports Limitations: until after follow-up appointment (rest/take it easy until follow-up with Cardiology) Instructions / Follow-Up Instructions / Follow-Up New/changed medications: 1. Aspirin 81 mg by mouth twice per day 2. Colchicine 0.6 mg by mouth twice per day 3. Indomethacin 25 mg by mouth three times per day Medications #1-3 are for treatment of pericarditis (inflammation of the sac around the heart). Please continue these medications until follow-up with cardiology, they will then further instruct you on these medications Please be sure to eat while taking these medications to prevent upset stomach. 4. Doxycycline 100 mg by mouth twice per day 5. Cefdinir 300 mg by mouth twice per day Medications #4-5 are antibiotics used to cover infectious causes of pericarditis. Laboratory studies are still pending at this time. Results will be forwarded to your PCP who can review the results with you at your follow-up appointment Please follow-up with your PCP within 5-7 days Please follow-up with Cardiology in 2-3 weeks Please follow-up/keep all of your subspecialty appointments Activation of Emergency Medical System: Call 911, immediately, if you experience any of the following: Warning Signs and Symptoms of a Heart Attack: * Chest pain that is not relieved by medication * Shortness of breath Otherwise, call your doctor immediately if you have: * Lightheadedness, dizziness, or fainting * Feeling of irregular heartbeat or fast pulse Current Hospital Diet Patient's current hospital diet: Regular Diet Discharge Diet Recommended Diet: Regular Diet Pending Studies Studies pending at discharge: no Laboratory Results Last 24 Hours Test 11/29/16 06:45 White Blood Count 6.91 K/uL Red Blood Count 3.61 M/uL Hemoglobin 11.5 g/dL Hematocrit 32.8 % Mean Corpuscular Volume 90.9 fL Mean Corpuscular Hemoglobin 31.9 pg Mean Corpuscular Hemoglobin Concent 35.1 g/dl Platelet Count 157 K/uL Mean Platelet Volume 8.7 fL RDW Standard Deviation 47.3 fL RDW Coefficient of Variation 14.4 % Neutrophils % (Manual) 21.1 % Lymphocytes % (Manual) 49.0 % Variant Lymphocytes % (manual) 22.8 % Monocytes % (Manual) 4.4 % Eosinophils % (Manual) 1.8 % Basophils % (Manual) 0.9 % Neutrophils # (Manual) 1.46 K/uL Total Absolute Neutrophils 1.46 K/uL Lymphocytes # (Manual) 3.39 K/uL Absolute Variant Lymphocytes 1.58 K/uL Total Absolute Lymphocytes 4.96 K/uL Monocytes # (Manual) 0.30 K/uL Eosinophils # (Manual) 0.12 K/uL Basophils # (Manual) 0.06 K/uL Red Blood Cell Morphology Unremarkable Sodium Level 145 mmol/L Potassium Level 4.3 mmol/L Chloride Level 110 mmol/L Carbon Dioxide Level 28 mmol/L Anion Gap 7.0 mmol/L Blood Urea Nitrogen 13 mg/dl Creatinine 0.82 mg/dl Est Creatinine Clear Calc Drug Dose 113.2 ml/min Estimated GFR () 142.4 Estimated GFR (Non- 122.9 BUN/Creatinine Ratio 15.6 Random Glucose 92 mg/dl Calcium Level 8.4 mg/dl Troponin I 5.550 ng/ml Medical Emergencies . Who to Call and When: Medical Emergencies: If at any time you feel your situation is an emergency, please call 911 immediately. . Non-Emergent Contact Non-Emergency issues call your: Primary Care Provider . . "Provider Documentation" section prepared by Dyan Frost. . VTE Core Measure Inpt VTE Proph given/why not?: Enoxaparin (Lovenox)SQ
--- NOTE | 2016-11-29 10:03 | Discharge Summary ---
Discharge Summary Date of Service November 29, 2016. (Dyan Frost, YESSICA) Discharge Summary Admission Date: November 27, 2016 at 11:08 Discharge Date: November 29, 2016 Discharge Disposition: Home Principal Diagnosis: Pericarditis; elevated troponin Procedures: CHEST ONE VIEW PORTABLE HISTORY: Atypical chest pain COMPARISON: None. FINDINGS: The lungs are clear. Cardiac silhouette is normal in size. No pleural effusions. No pneumothorax. IMPRESSION: No acute process. Electronically signed by: Stef Servin M.D. 11/27/2016 9:29 AM Dictated Date/Time: 11/27/2016 9:28 AM The status of this report is Signed. Draft = Not yet reviewed or approved by Radiologist. Signed = Reviewed and approved by Radiologist. CHEST CTA for PULMONARY ARTERIES CT DOSE: 192.10 mGy.cm HISTORY: Atypical chest pain. TECHNIQUE: Multiaxial CT images of the chest were performed following the intravenous administration of contrast to evaluate the pulmonary arteries. Maximal intensity projection images were also obtained. COMPARISON STUDY: None. FINDINGS: There is a normal caliber thoracic aorta with no evidence for dissection. There is no evidence for pulmonary embolus. No pleural effusions. No pneumothorax. The liver and spleen are unremarkable. No mediastinal or hilar lymphadenopathy. The central airways are patent. The lungs are clear. The main pulmonary artery is dilated up to 3.4 cm. IMPRESSION: No evidence for pulmonary embolus. Dilated main pulmonary artery. This is concerning for pulmonary arterial hypertension. Follow-up nonemergent echocardiogram is recommended for further evaluation. Electronically signed by: Stef Servin M.D. 11/27/2016 10:16 AM Dictated Date/Time: 11/27/2016 10:07 AM The status of this report is Signed. Draft = Not yet reviewed or approved by Radiologist. Signed = Reviewed and approved by Radiologist. ECHOCARDIOGRAM: Interpretation Summary * Name: JACKELYN ANDUJAR Study Date: 11/27/2016 12:17 PM BP: 106/69 mmHg * Patient Location: [facility]\S\S238\S\2 HR: 75 * : 1990 (M/d/yyyy) Gender: Male Height: 66 in * Age: 26 yrs Ethnicity: [place] Weight: 125 lb * Ordering Physician: Suraj, Audi * Referring Physician: Self, Referred * Performed By: Gabriella Gonzales [facility] * * Reason For Study: CHEST PAIN / ELEVATED TROPONIN * BSA: 1.6 m2 * -- Conclusions -- * 1. Normal left ventricular size and systolic function. EF 55-60%. No definite regional wall motion abnormalities. No left ventricular hypertrophy. No significant diastolic dysfunction. * 2. No significant valvular abnormalities. * 3. Normal estimated right ventricular systolic pressure. * 4. No prior study available for comparison. Procedure Details * A complete two-dimensional transthoracic echocardiogram was performed (2D, M- mode, Doppler and color flow Doppler). Left Ventricle * Normal left ventricular size and systolic function. EF 55-60%. No definite regional wall motion abnormalities. No left ventricular hypertrophy. No significant diastolic dysfunction. Right Ventricle * The right ventricle is normal in size and function. * The right ventricular systolic function is normal as assessed by tricuspid annular plane systolic excursion (TAPSE) (normal >1.5 cm). Atria * The left atrial size is normal. * Right atrial size is normal. * There is no evidence of atrial septal defect, but resolution does not allow assessment for a patent foramen ovale. Mitral Valve * The mitral valve leaflets appear normal. There is no evidence of stenosis, fluttering, or prolapse. * There is trace mitral regurgitation. Tricuspid Valve * The tricuspid valve is not well visualized, but is grossly normal. * There is no tricuspid stenosis. * There is trace tricuspid regurgitation. Aortic Valve * The aortic valve is normal in structure and function. * The aortic valve is trileaflet. * No hemodynamically significant valvular aortic stenosis. * No aortic regurgitation is present. Pulmonic Valve * The pulmonary valve is inadequately visualized, but the Doppler data is adequate for interpretation. * There is no pulmonic valvular stenosis. * There is no significant pulmonary regurgitation. Great Vessels * The aortic root is normal size. * Normal pulmonary venous flow pattern. Pericardium/Pleural * There is no pericardial effusion. Great Vessels * Normal inferior vena cava size and collapsability with sniff indicates a normal right atrial pressure of 3 mmHg MMode 2D Measurements and Calculations IVSd 0.98 cm IVSs 1.4 cm LVIDd 5.0 cm LVIDs 3.3 cm LVPWd 0.97 cm LVPWs 1.4 cm IVS/LVPW 1.0 FS 32.6 % EDV(Teich) 115.9 ml ESV(Teich) 45.4 ml EF(Teich) 60.8 % EDV(cubed) 121.8 ml ESV(cubed) 37.2 ml EF(cubed) 69.4 % % IVS thick 40.0 % % LVPW thick 39.1 % LV mass(C)d 174.1 grams LV mass(C)dI 106.3 grams/m\S\2 LV mass(C)s 155.5 grams LV mass(C)sI 94.9 grams/m\S\2 SV(Teich) 70.5 ml SI(Teich) 43.0 ml/m\S\2 SV(cubed) 84.6 ml SI(cubed) 51.6 ml/m\S\2 Ao root diam 2.8 cm Ao root area 6.2 cm\S\2 LA dimension 2.9 cm LA/Ao 1.0 LVOT diam 1.9 cm LVOT area 3.0 cm\S\2 LVAd ap4 36.8 cm\S\2 LVLd ap4 9.1 cm EDV(MOD-sp4) 127.3 ml EDV(sp4-el) 126.4 ml LVAs ap4 20.8 cm\S\2 LVLs ap4 7.2 cm ESV(MOD-sp4) 51.7 ml ESV(sp4-el) 50.8 ml EF(MOD-sp4) 59.4 % EF(sp4-el) 59.8 % SV(MOD-sp4) 75.6 ml SI(MOD-sp4) 46.1 ml/m\S\2 SV(sp4-el) 75.5 ml SI(sp4-el) 46.1 ml/m\S\2 Doppler Measurements and Calculations MV E max asher 73.9 cm/sec MV A max asher 36.7 cm/sec MV E/A 2.0 MV P1/2t max asher 95.1 cm/sec MV P1/2t 69.9 msec MVA(P1/2t) 3.1 cm\S\2 MV dec slope 398.8 cm/sec\S\2 MV dec time 0.24 sec Ao V2 max 101.1 cm/sec Ao max PG 4.1 mmHg Ao max PG (full) 1.4 mmHg RAIMUNDO(V,A) 2.4 cm\S\2 RAIMUNDO(V,D) 2.4 cm\S\2 LV V1 max PG 2.7 mmHg LV V1 max 81.4 cm/sec TV E max asher 73.9 cm/sec PA V2 max 85.9 cm/sec PA max PG 3.0 mmHg TR max asher 194.2 cm/sec RVSP(TR) 18.1 mmHg RAP systole 3.0 mmHg Created: Initialized: 11/27/16; 1320 <Electronically signed by Salomon Rodriguez M.D.> Signed: 11/27/162116 Salomon Rodriguez M.D. The status of this report is Signed. Draft = Not yet reviewed or approved by Vehicle Controls Engineer. Signed = Reviewed and approved by Vehicle Controls Engineer. Consultations: Cardiology (Dyan Frost, PA-C) Medication Reconciliation New Medications: Cefdinir (Omnicef) 300 Mg Cap 300 MG PO Q12H for 14 Days, #28 CAP Doxycycline Hyclate (Doxycycline Hyclate) 100 Mg Cap 100 MG PO BID for 10 Days, #20 TABS Aspirin (Aspirin EC Low Dose) 81 Mg Ectab 81 MG PO BID for 30 Days Colchicine (Colcrys) 0.6 Mg Tab 0.6 MG PO BID for 30 Days, #60 TAB 3 Refills Indomethacin (Indomethacin) 25 Mg Cap 25 MG PO TID for 30 Days, #90 CAP Continued Medications: Ascorbic Acid (Vitamin C) 500 Mg Cap 500 MG PO DAILY Discontinued Medications: Ciprofloxacin Hcl (Cipro) 500 Mg Tab 500 MG PO BID, TAB Discharge Exam Review of Systems: Constitutional: No chills, No fatigue, No fever, No sweats, No weakness Respiratory: No cough, No hemoptysis, No shortness of breath Cardiovascular: No chest pain, No edema, No palpitations Abdomen: No diarrhea, No nausea, No pain, No vomiting Musculoskeletal: No calf pain, No joint pain, No muscle pain, No swelling Genitourinary - Male: No dysuria, No hematuria Neurologic: No numbness/tingling, No weakness Psychiatric: No anxiety, No depression symptoms Hematologic / Lymphatic: No abnormal bleeding/bruising Integumentary: No itch, No new/changing skin lesions, No rash Physical Exam: General Appearance: WD/WN, no apparent distress Eyes: normal inspection, PERRL ENT: hearing grossly normal Neck: supple Respiratory/Chest: lungs clear, no respiratory distress, no accessory muscle use Cardiovascular: regular rate, rhythm Abdomen / GI: normal bowel sounds, non tender, soft Extremities: no calf tenderness, no pedal edema Neurologic/Psychiatric: alert, normal mood/affect, oriented x 3 Skin: normal color, warm/dry, no rash (Dyan Frost, YESSICA) Hospital Course HPI on admission: Pt is a 26 yo male with no past medical hx who presents to the ER with complaints of nausea/chest tightness and upper back pain that started this AM. Pt reports having pain on urination and bilateral flank pain and fevers, joint pains last Sunday in which he states he went to see Arianna Foster after symptoms persisted for 2 days. He was given cipro at that time in which he states his symptoms initially improved until yesterday in which he states he had some reflux after taking his cipro. He states this morning, he woke up chest pressure and upper back pain as well. He felt cloudy, and dizzy and general malaise at which he decided to come to the ER. In addition pt does report prior to his intial sx last week, he did notice several tick bites on his abdomen and left leg. Currently he denies any fevers, chill, nausea, vomiting, diarrhea, flank pain, abdominal pain or urinary sx. Chest pressure with elevated trop/NSTEMI: - Admit to [facility] for cardiac monitoring- no acute events, sinus rhythm 60-80s - Trend cardiac enzymes- peak trop 7.680 - Elevated d-dimer- CTA negative for PE - ?pericarditis- ASA 81 mg BID, Colchicine 0.6 mg BID, and Indomethacin 25 mg TID- instructed patient to continue these medications until f/u w/ cardiology - IV Rocephin and Doxycycline pending serologies and BCx -- BCx NGTD -- Discharged with Cefdinir 300 mg BID x2 weeks and Doxycycline 100 mg BID x10 days due to ?infectious process causes pericarditis and serologies pending - CXR- no acute process - UCx- NGTD - ECHO- * 1. Normal left ventricular size and systolic function. EF 55-60%. No definite regional wall motion abnormalities. No left ventricular hypertrophy. No significant diastolic dysfunction. * 2. No significant valvular abnormalities. * 3. Normal estimated right ventricular systolic pressure. * 4. No prior study available for comparison. - IVF @ 100 ml/hr - Cardiology consulted, appreciate recommendations -- Echocardiogram in 6-8 weeks to re-evaluate LV systolic function. -- Recommend followup with Moshe Alicia PA-C and Dr. Fernando within the next 2- 3 weeks. -- Continue Colchicine for at least 3 months -- Indocin for 2-4 weeks Elevated BUN/Cr, likely secondary to dehydration- RESOLVED: - Treated w/ IVF - Follow PRP Thrombocytopenia, likely reactive to infection- RESOLVED: Follow CBC DVT Prophylaxis: Lovenox Code Status: LEVEL I, FULL Dispo: Discharge to home - Nurse navigator to setup PCP f/u in 1 week and cardiology f/u in 2-3 weeks Total Time Spent: Greater than 30 minutes This includes examination of the patient, discharge planning, medication reconciliation, and communication with other providers. (Dyan Frost PA-C) Total Time Spent: Greater than 30 minutes (Fredo Conde, D.O.) Discharge Instructions Please refer to the electronic Patient Visit Report (Discharge Instructions) for additional information. (Dyan Frost PA-C) Follow-Up Please follow-up with your PCP within 5-7 days Please follow-up with Cardiology in 2-3 weeks Please follow-up/keep all of your subspecialty appointments (Dyan Frost PA-C) i personally examined pt and verified all low points fuad Frost PAC feeling better wants to go home vitals stable troponin starting to slowly trend down no arrythmias. no further sx. no GC risk/exposure/STI concern. stable for home vitals noted nad breathing unlabored no rashes no pallor or icterus, labs noted reactive illness w myopericarditis as main manifestation, hematuria/dysuria as cardinal manifestation, probable reactive arthritis ---wide ddx due to viral vs urethral/urinary infection vs tick borne all possible ---after extensive w/u and extensive discussions - home w empiric abx as above to cover for potential pathogens given near-impossibility of definitive dx on etiology ---colchicine and indocin as per cardiology recommendations ---stable for home ----PCP next week, cardiology ~4wks repeat echo per their recommendations (Fredo Conde, D.Brooke.) Additional Copies To Kaiden Fernando M.D.; Arianna Gonzales, C.R.NMukeshP.
[2016-11-29 11:06] VITALS: BP 102/64; PULSE 81; TEMP 36.8; O2SAT 99
--- NOTE | 2016-11-29 13:00 | CARDIOLOGY PROGRESS NOTE ---
DATE: 11/29/2016 SUBJECTIVE: Mr. Palomares is resting comfortably in bed without complaints of chest pain or dyspnea. He has been ambulatory without difficulty. He is anxious for hospital discharge. OBJECTIVE: VITAL SIGNS: Blood pressure is 102/64 with a regular pulse of 80. Respiratory rate is 20. The patient is afebrile at 36.8 degrees Celsius. Saturation is 99% on room air. NECK: Supple with full carotid upstrokes. No carotid bruits. Jugular venous pressure is flat at 90 degrees. There is no thyromegaly. CARDIOVASCULAR: Reveals a regular rhythm, S1 and S2. No S3, S4, rubs, or murmurs are noted. LUNGS: Clear without rales, rhonchi, or wheezes. ABDOMEN: Soft and nontender without bruits. EXTREMITIES: Reveal intact radial artery pulses bilaterally. There is no peripheral edema. LABORATORY DATA: CBC notes a hemoglobin 11.5, hematocrit 32.8, white count 6.9, and platelet count 157,000. Electrolytes note a sodium of 145, potassium 4.3, chloride 110, bicarbonate 28, BUN 13, creatinine 0.8, and glucose 92. Troponin I level down to 5.55 from a peak value of 7.68. supply chain tech is benign. EKG was not performed this morning. IMPRESSION AND PLAN: 1. Acute myopericarditis - the patient's symptoms have resolved since starting colchicine and Indocin. Would suggest continuing colchicine at 0.6 mg b.i.d. for 3 months. Should remain on Indocin at 25 mg t.i.d. for 2-4 weeks. We will see the patient after discharge and determine whether repeat echocardiogram is indicated. We will be happy to see him in 2-3 weeks. 2. Normal left ventricular systolic function.
[2016-12-01 10:39] LABS: ANAPLASMA PHAGOCYTOPHIL IGG <1:64 (<1:64); ANAPLASMA PHAGOCYTOPHIL IGM <1:20 (<1:20)
[2016-12-01 22:33] LABS: CYTOMEGALOVIRUS IGG AB <0.60 U/ML; EPSTEIN BARR VIR CAPSID IGG <0.91 INDEX; PARVOVIRUS IgG INDEX 0.3 (<0.9); PARVOVIRUS IgM INDEX 0.1 (<0.9)
[2016-12-02 09:08] LABS: 18KDIGG BAND NONREACTIVE (NONREACTIVE); 23KDIGG BAND NONREACTIVE (NONREACTIVE); 23KDIGM BAND NONREACTIVE (NONREACTIVE); 28KDIGG BAND NONREACTIVE (NONREACTIVE); 30KDIGG BAND NONREACTIVE (NONREACTIVE); 39KDIGG BAND NONREACTIVE (NONREACTIVE); 39KDIGM BAND NONREACTIVE (NONREACTIVE); 41KDIGG BAND NONREACTIVE (NONREACTIVE); 41KDIGM BAND NONREACTIVE (NONREACTIVE); 45KDIGG BAND NONREACTIVE (NONREACTIVE); 58KDIGG BAND NONREACTIVE (NONREACTIVE); 66KDIGG BAND NONREACTIVE (NONREACTIVE); 93KDIGG BAND NONREACTIVE (NONREACTIVE)
[2016-12-02 18:36] LABS: COXSACKIE A10 <1:8; COXSACKIE A16 <1:8; COXSACKIE A2 <1:8; COXSACKIE A4 <1:8; COXSACKIE A7 <1:8; COXSACKIE A9 <1:8; COXSACKIE B1 1:16 (<1:8); COXSACKIE B2 1:16 (<1:8); COXSACKIE B5 1:16 (<1:8)
== END 2016-11-29 12:33 | disposition home or self-care (01) | DRG 316 ==
LOC: ENRESERVDT → ENRESERVTM → C.EDB 07:58 → C.2T 11:08
PROVIDERS: ADMIT Hospitalist; ATTEND Family Medicine
DX: I31.9 Disease of pericardium, unspecified (principal); R07.9 Chest pain, unspecified; E86.0 Dehydration; R79.89 Other specified abnormal findings of blood chemistry; N34.2 Other urethritis; B34.9 Viral infection, unspecified; D69.6 Thrombocytopenia, unspecified; R31.9 Hematuria, unspecified; M02.9 Reactive arthropathy, unspecified

== ENCOUNTER 2017-10-29 17:23 | Emergency (ER) | payer BC ==
[~2017-10-29] VITALS: Ht 170.2 cm; Wt 59.1 kg
[~2017-10-29 17:23] MED LIST changes: -ASPEC81 PO; +ASPI-320 PO; -CEFD300C2 PO; -CIPR1TAB10 PO
[2017-10-29 17:25] VITALS: TEMP 36.5; Ht 170.2 cm; Wt 59.1 kg
[2017-10-29] MEDS ORDERED: DIPHTHERIA/TETANUS/PERTUSSIS 0.5 ML SYR/VIAL IM. ONE (17:45)
[2017-10-29] MEDS ORDERED: LIDOCAINE 1% BUFFERED INJ 5 ML VIAL INFIL ONE (17:45)
[2017-10-29] MEDS ORDERED: CEPH500C PO (18:02)
--- NOTE | 2017-10-29 18:02 | EMERGENCY ROOM VISIT NOTE ---
History First contact with patient: 17:27 Chief Complaint: LACERATION/CUT (SUT/DERMABOND) Stated Complaint: HOOK IN R HAND BETWEEN THUMB & INDEX FINGER Nursing Triage Summary: Fishing hook stuck in right hand History of Present Illness The patient is a 27 year old male who presents to the Emergency Room with complaints of a fishing hook stuck in his hand. The patient reports that he was fishing just prior to arrival and got a fishing hook stuck in his hand. The focus stuck between the thumb and index finger. He denies any pain at this time. His tetanus is not up-to-date. He did try to remove the hook on his own but was unable. Review of Systems A complete 6 point review of systems was reviewed with the patient with pertinent positives and negatives as per history of present illness. All else were negative. Past Medical/Surgical History Medical Problems: (1) Elevated troponin (2) No significant active problems Social History Smoking Status: Never Smoker Drug Use: none Marital Status: in relationship Housing Status: lives with significant other Occupation Status: employed Current/Historical Medications Scheduled Ascorbic Acid (Vitamin C), 500 MG PO DAILY Doxycycline Hyclate (Doxycycline Hyclate), 100 MG PO BID Physical Exam Vital Signs Date Time Temp Pulse Resp B/P (MAP) Pulse Ox O2 Delivery O2 Flow Rate FiO2 10/29/17 18:15 86 16 116/74 98 10/29/17 17:25 36.5 101 16 133/80 100 Room Air Physical Exam VITALS: Vitals are noted on the nurse's note and reviewed by myself. Vital signs stable. GENERAL: This is a 27-year-old male, in no acute distress, nondiaphoretic, well- developed well-nourished. SKIN: There is a 3 pronged fishing hook embedded into the dorsal aspect of the right hand, between the thumb and index finger. No bleeding. MUSCULOSKELETAL: Full range of motion of the hand and all fingers. Distal sensation intact. NEURO: Patient was alert and oriented to person place and time. Medical Decision & Procedures Medications Administered Medications (Trade) Dose Ordered Sig/Angelica Route Start Time Stop Time Status Last Admin Dose Admin Diphtheria/ Pertussis/Tetanus Vacc (Adacel Inj) 0.5 ml ONCE ONCE IM. 10/29/17 17:45 10/29/17 17:46 DC 10/29/17 17:46 0.5 ML Procedure Verbal consent was obtained to perform the procedure. Using sterile technique the wound was cleaned with Betadine. The area was sterilely draped. 1 ml of 1 % buffered lidocaine was used to anesthetize the area surrounding the hook. Once the patient was anesthetized, the hook was pushed through the skin and the lizandro was cut. The hook was then easily removed. The wound was then cleansed with sterile saline and Betadine and a dressing was applied. The patient tolerated the procedure well. Medical Decision The patient was evaluated as above. He presents with a fishhook injury to the right hand. The fishhook was removed as described above. The patient was given an Adacel. Wound care instructions were discussed with the patient. He will be placed on 3 days of Keflex to prevent any infection. He verbalized understanding of my assessment and treatment plan and was discharged home in good condition. Medication Reconcilliation Current Medication List: was personally reviewed by me Blood Pressure Screening Patient's blood pressure: Normal blood pressure Impression Primary Impression: Fish hook injury of hand Departure Information Dispostion Home / Self-Care Condition GOOD Referrals Arianna Gonzales, C.R.N.P. (PCP) Patient Instructions [facility] Additional Instructions Keflex as prescribed. This is an antibiotic to prevent any infection. For pain control, you can use the following dciw-bhy-fthmgem medicines (if >12 yo): - Regular strength (325mg/tab) Tylenol (acetaminophen) 2 tabs every 4-6 hours as needed. Do not exceed 12 tablets in a 24 hour period. Avoid taking more than 4 grams (4000 mg) of Tylenol per day. This includes any other sources of acetaminophen you may take on a regular basis. - Regular strength (200 mg/tab) Advil (ibuprofen) 1-2 tabs every 4-6 hours as needed. Do not exceed a dose of 3200 mg per day. Return for any signs of infection such as increasing redness, swelling, drainage or other new/concerning symptoms. Problem Qualifiers Primary Impression: Fish hook injury of hand Encounter type: initial encounter Laterality: right Qualified Codes: S69.91XA - Unspecified injury of right wrist, hand and finger(s), initial encounter
[2017-10-29 18:15] VITALS: BP 116/74; PULSE 86; O2SAT 98
== END 2017-10-29 18:26 | disposition home or self-care (01) ==
LOC: C.EDB 17:24 → C.EDD 18:26
DX: S60.551A Superficial foreign body of right hand, initial encounter (principal); W45.8XXA Other foreign body or object entering through skin, initial encounter; Z79.899 Other long term (current) drug therapy; Z23 Encounter for immunization